=== PATIENT | male | born 1990 | race Caucasian/White ===

== ENCOUNTER → 2024-12-13 12:21 | Outpatient (REF) | payer OTHER, SELFPAY | LOC: DHSLP 12:21 | PROVIDERS: ATTENDING PHYSICIAN Internal Medicine; FAMILY PHYSICIAN Student in an Organized Health Care Education/Training Program | DX: G47.33 Obstructive sleep apnea (adult) (pediatric) (principal) | CPT/HCPCS: 95800 ==

== ENCOUNTER 2025-05-13 11:02 | Emergency (ER) | payer BC, SELFPAY ==
[2025-05-13 11:07] VITALS: BP 159/116
--- NOTE | 2025-05-13 11:40 | ED.GENMED ---
History of Present Illness
General
Chief Complaint: Chest Pain
Source: patient
Exam Limitations: none
Time Seen by Provider: 05/13/25 11:24
Nursing documentation reviewed up to this point in time: agreed with
History of Present Illness
History of Present Illness:
34-year-old male presented to the ER for evaluation. Patient was sent by his primary care provider. Patient started with chest tightness on Friday 2 days ago. He noticed this while laying down resting. It lasted for 2 to 3 minutes. It did
feel muscular to him. He had no associated shortness breath nausea vomiting or radiation of pain. He denies any injury. Since then however he has had intermittent episodes of small discomfort in his chest. He denies any actual injury. Denies
any recent cough fever chills. He is not short of breath with this. In addition to this he has had pain in his left thigh off-and-on for the past several weeks. He does feel it worse when he stands or is laying down. He denies any associated
back pain. He denies any leg weakness. He denies any bowel or bladder incontinence. He denies any numbness Tinging weakness legs. He denies any swelling to his leg. 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
to his family doctor.
He has no prior history of DVT.
No clotting issues. Patient does not smoke.
Phy Exam
General Physical Exam
General Presentation: no apparent distress
General age: appears stated age
General Skin: warm and dry
General Habitus: obese
General Mental: alert
General Hydration: appears well hydrated
Cardiovascular Exam
Cardiovascular Exam: regular rate/rhythm, no murmur and normal peripheral pulses
Pulmonary Exam
Pulmonary Exam: lungs clear and no respiratory distress
Neurological Exam
Neurological Exam: alert and oriented x3
Musculoskeletal Exam
Musculoskeletal Exam: full ROM and other (No tenderness or swelling to left thigh strong pulses)
Skin Exam
Skin Exam: normal color and warm/dry
Psychiatric Exam
Psychiatric Exam: normal mood/affect
Scores
Heart Score for Chest Pain Patients
STEMI patient?: Not applicable
Course
Orders/Labs/Results
Orders:
Orders
05/13/25 11:14
EKG [Electrocardiogram (*1)] Urgent
Reason for Study: Chest Pain
EKG- Treatment ONCE
05/13/25 11:38
IV Insert/Care/Rem.- Treatment PRN
Venous Doppler Lwr Ext Left [US Periph Venous LOWER Ext LT] Urgent
Comment:
Reason For Exam: pain left thigh
05/13/25 11:39
Cardiac Monitoring- Treatment ONCE
CR Chest - 2 Views Urgent
Comment:
Reason For Exam: cp
05/13/25 11:51
Complete Blood Count/With Diff Urgent
Comprehensive Metabolic Panel Urgent
Troponin I Urgent
Abnormal Lab Results
05/13/25
11:51
Glucose 108 H mg/dl
(70-99)
05/13/25 11:51
05/13/25 11:51
Vital Signs
Initial and Last Documented VS:
Initial Vital Signs
Temp Pulse Resp BP Pulse Ox
98.6 F 89 18 159/116 95
05/13/25 11:07 05/13/25 11:07 05/13/25 11:07 05/13/25 11:07 05/13/25 11:07
Last Documented Vital Signs
Temp Pulse Resp BP Pulse Ox
98.6 F 63 16 131/93 97
05/13/25 11:07 05/13/25 11:55 05/13/25 11:55 05/13/25 11:55 05/13/25 11:55
MDM/Problems Addressed
Differential Diagnosis Includes:
not limited to ACS/DVT, radiculopathy
MDM/Problems Addressed:
As documented patient is a 34-year-old male who has had intermittent left thigh pain for the past several weeks worse with standing, laying. No injury no obvious swelling on exam. In addition he had chest tightness intermittently since Friday.
Patient has no symptoms here on exam he is in no acute distress he has no obvious swelling to legs on exam describing almost a radicular/sciatica pain. No acute findings on EKG negative cardiac troponin.. He denies any shortness of breath he is
nontachycardic nontachypneic nonhypoxic stable appearing symptoms not consistent with PE.
Stable for discharge home with cardiology hotline as well as family doctor. Will encourage ibuprofen for possible sciatica over the next of days he may need additional treatment including steroids however I did review with patient importance of
close follow with PCP for further evaluation of his symptoms
*Radiology
Radiology exam reviewed: radiology read reviewed
*Pulse Oximetry
SaO2: 95
Oxygen Mode of Delivery: Room air
Patient hypoxic: no
*EKG
Interpreted by ED Provider?: Yes
Interpretation: normal
Heart Rate: 88
Rate: normal
Ischemia: no ischemia
*Critical Care Note
Total Time (30-74mins, 75-104mins- exclusive of procedures): Not Applicable
ED Attending Note
-
Portions of this chart may have been created with voice recognition software.� Occasional wrong word or��sound alike� substitutions may have occurred due to the inherent limitations of voice recognition software.
Discharge Plan
Departure
Patient Disposition: Home (Routine Discharge)
Date of Disposition: 05/13/25
Time of Disposition: 13:49
Patient with high blood pressure during this ER visit?: Yes
Condition: Fair
Covid-19: Not Applicable
Discharge Problem:
Chest pain
Instructions: Radiculopathy of the neck and back (including sciatica) (DC), Chest Pain DCA Follow Up, BLOOD PRESSURE
Prescriptions:
No Action
No Current Medications
0
Referrals:
Chapincito Bourgeois, [Family Provider, Family Practice]
Dayne Arriaga DO [Active, Cardiology]
Activity Restrictions/Additional Instructions:
As discussed please follow-up with cardiology for further evaluation. You were placed on the chest pain hotline. This means that you should receive a phone call in the next 2 days however if you do not please call the office to schedule an
appointment soon as possible. Also as discussed your ultrasound is negative for DVT this is possibly radiculopathy/pinched nerve/sciatica. You may take ibuprofen every 8 hours for the next several days. Please follow-up closely with your family
doctor for reevaluation of this return to the ER for any worsening of symptoms
Interventions
Interventions:
*Risk Screen - Suicide Last Done: 05/13/25 11:07
*Neglect/Abuse Screening Last Done: 05/13/25 11:13
*ED COVID-19 Vaccine History Last Done: 05/13/25 11:07
*ED Influenza Vaccine History Last Done: 05/13/25 11:13
ED- Cardiac Assessment Last Done: 05/13/25 11:55
Discharge Date and Time
Print Language: ALBAN[place]
[2025-05-13 11:52] VITALS: BMI 59.3
[2025-05-13 11:55] VITALS: BP 131/93
[2025-05-13 12:00] LABS: Hematocrit 42.8 % (39.0-52.0); Hemoglobin 14.4 g/dL (13.0-18.0); Mean Corp Hgb Conc. 33.6 g/dL (33.0-37.0); Mean Corpuscular Volume 88.1 fL (80.0-94.0); Nucleated Red Blood Cells % 0 % (-); Platelet Count 273 10^3/uL (130-400); Red Cell Dist. Width 13.2 % (11.5-14.5)
[2025-05-13 12:14] LABS: ALT (SGPT) 35 U/L (0-50); AST (SGOT) 22 U/L (17-59); Albumin 4.7 g/dl (3.5-5.0); Alkaline Phosphatase 55 U/L (38-126); Blood Urea Nitrogen 13 mg/dl (9-20); Calcium 9.7 mg/dl (8.4-10.2); Carbon Dioxide 28 mmol/L (22-30); Chloride 106 mmol/L (98-107); Estimated Creatinine Clearance > 125 ml/min; Glucose 108 mg/dl (70-99); Potassium 4.3 mmol/L (3.5-5.1); Sodium 139 mmol/L (135-145); Total Protein 7.4 g/dl (6.3-8.2); eGFR > 60.00
[2025-05-13 12:24] LABS: Troponin I < 0.012 ng/ml
== END 2025-05-13 14:16 | disposition home or self-care (01) ==
LOC: EMR 11:02
PROVIDERS: Nurse Practitioner; EMERGENCY PHYSICIAN Student in an Organized Health Care Education/Training Program; FAMILY PHYSICIAN Family Medicine
DX: R07.89 Other chest pain (principal); E66.9 Obesity, unspecified
CPT/HCPCS: 99284; 71046; 80053; 84484; 85025; 93005; 93971

== ENCOUNTER → 2025-06-14 07:33 | Outpatient (REF) | payer BC, SELFPAY | LOC: PET 07:33 | PROVIDERS: ATTENDING PHYSICIAN Internal Medicine Cardiovascular Disease | DX: R07.9 Chest pain, unspecified (principal); E66.01 Morbid (severe) obesity due to excess calories; R00.2 Palpitations | CPT/HCPCS: 78431; A9555; J2785 ==